=== PATIENT | male | born 1990 | race Caucasian/White ===

== ENCOUNTER 2016-06-14 23:20 | Emergency (ER) | payer SELFPAY ==
[~2016-06-14] VITALS: Ht 165.1 cm; Wt 72.6 kg
--- NOTE | 2016-06-14 23:20 | NUR ---
Patient to ER bed 8 to gown for evaluation. Side rails up. Report given to DANIEL Barrera.
[2016-06-14 23:32] VITALS: BP 124/88; PULSE 69; RESP 16; TEMP 99.1; O2SAT 99
--- NOTE | 2016-06-14 23:40 | NUR ---
ER at bedside examining patient.
--- NOTE | 2016-06-14 23:40 | NUR ---
Pt brought in by friend in stable condition. Pt stated that he woke up an hour ago w/ a cough. Pt stated that he coughed up so much that he coughed up bile and blood. Pt does not appear to be in any acute distress at this time. Will continue to monitor
[2016-06-14 23:48] VITALS: BP 124/88; PULSE 59; RESP 14; TEMP 99.1; O2SAT 99
--- NOTE | 2016-06-14 23:48 | NUR ---
Patient given written and verbal discharge instructions and verbalizes understanding. ER MD Small discussed with patient the results and treatment provided. Patient in stable condition. ID arm band removed. Rx of Albuterol given. Patient educated on pain management and to follow up with PMD. Pain Scale 0/10. Opportunity for questions provided and answered.
== END 2016-06-14 23:48 | disposition home or self-care (01) ==
LOC: SED 23:20
DX: J98.01 Acute bronchospasm (principal)
CPT/HCPCS: 99283